=== PATIENT | male | born 1975 | race Caucasian/White ===

== ENCOUNTER 2016-08-17 02:44 | Emergency (ER) | payer OTHER ==
[~2016-08-17] VITALS: Ht 188 cm; Wt 130.2 kg
[2016-08-17 02:56] VITALS: TEMP 36.9; Ht 188 cm; Wt 130.2 kg
[2016-08-17 03:23] LABS: HEMATOCRIT 45.8 % (42-52); MEAN CELL VOLUME 82.4 fL (80-100); MEAN CORPUSCULAR HEMOGLOBIN 28.6 pg (25-34); MEAN CORPUSCULAR HGB CONC 34.7 g/dl (32-36); MEAN PLATELET VOLUME 9.1 fL (7.4-10.4); PLATELET COUNT 228 K/uL (130-400); RED BLOOD COUNT 5.56 M/uL (4.7-6.1); WHITE BLOOD COUNT 11.93 K/uL (4.8-10.8)
[2016-08-17 03:44] LABS: BUN/CREATININE RATIO 10.7 (10-20); POTASSIUM 3.4 mmol/L (3.5-5.1)
[2016-08-17 03:45] LABS: BASO % 0.2 %; BASO ABS # 0.02 K/uL (0-0.2); COMPLETE YES; EOS % 0.8 %; IG% 0.3 %; LYMPH % 14.4 %; LYMPH ABS # 1.72 K/uL (1.2-3.4); MONO % 5.2 %; NEUT % 79.1 %
[2016-08-17] MEDS ORDERED: CLONIDINE HCL 0.1 MG TAB ONE (04:14)
[2016-08-17] MEDS ORDERED: HOME MED ADMINISTRATION ONE (04:15)
[2016-08-17] MEDS ORDERED: CLONIDINE HCL 0.3 MG TAB PO ONE (04:15)
[2016-08-17 04:23] VITALS: BP 184/113; PULSE 93; O2SAT 97
[2016-08-17] MEDS ORDERED: AMLO-114 PO (04:24)
[2016-08-17] MEDS ORDERED: METO50TA16 PO (04:25)
[2016-08-17] MEDS ORDERED: GABA-112 PO (04:26)
--- NOTE | 2016-08-17 05:26 | EMERGENCY ROOM VISIT NOTE ---
History First contact with patient: 02:59 Chief Complaint: HYPERTENSION Stated Complaint: HYPERTENSION History of Present Illness The patient is a 41 year old male who presents to the Emergency Room with complaints of elevated blood pressure that started about 5 or 6 hours prior to arrival. The patient lives in [facility] and presents to the ER under police custody. Evidently the patient is undergoing legal issues and is reportedly being taken into custody for dispensing heroin. The patient has a long-standing history of hypertension. Upon intake to [employer] police, he was found to be hypertensive, and was referred to the ER for further management. The patient states that he has not taken his evening medications, and is under increased stress because of his legal situation. He does not have distinct chest pain or shortness of breath. He does follow with his primary care physician back home with his complaint. He rates his current discomfort a 7/10. No recent fevers or chills. Review of Systems More than 10 systems were reviewed and otherwise negative with the exception of history of present illness. Past Medical/Surgical History History of hypertension Family History No pertinent family history Social History Smoking Status: Current Every Day Smoker Housing Status: lives with family Current/Historical Medications Scheduled Amlodipine (Norvasc), 10 MG PO DAILY Gabapentin (Neurontin), 100 MG PO DAILY Metoprolol Tartrate (Lopressor) (Lopressor), 50 MG PO BID Allergies Coded Allergies: No Known Allergies (Unverified , 08/17/16) Physical Exam Vital Signs Date Time Temp Pulse Resp B/P Pulse Ox O2 Delivery O2 Flow Rate FiO2 08/17/16 04:23 93 20 184/113 97 08/17/16 03:35 86 20 182/122 96 Room Air 08/17/16 02:56 36.9 82 16 183/120 96 Room Air 08/17/16 02:54 Room Air Pain Rating (0-10): 0 Physical Exam VITALS: Vitals are noted on the nurse's note and reviewed by myself. Vital signs with noted hypertension GENERAL: Well-developed, well-nourished, male, who is in no acute distress and resting comfortably. Patient is cooperative with the examination. HEAD: Normocephalic atraumatic. NECK: Supple without nuchal rigidity. No lymphadenopathy. No thyromegaly. Cervical spine is nontender. HEART: Regular rate and rhythm without murmurs gallops or rubs. LUNGS: Clear to auscultation bilaterally without wheezes, rales or rhonchi. No retractions or accessory muscle use. ABDOMEN: Positive normal bowel sounds x 4. Soft, nontender, without masses or organomegaly. No guarding or rebound tenderness. MUSCULOSKELETAL: No muscle atrophy, erythema, or edema noted. Full range of motion without joint tenderness in all extremities. Medical Decision & Procedures Laboratory Results 08/17/16 03:13 Red Blood Count 5.56, Mean Corpuscular Volume 82.4, Mean Corpuscular Hemoglobin 28.6, Mean Corpuscular Hemoglobin Concent 34.7, Mean Platelet Volume 9.1, Neutrophils (%) (Auto) 79.1, Lymphocytes (%) (Auto) 14.4, Monocytes (%) (Auto) 5.2, Eosinophils (%) (Auto) 0.8, Basophils (%) (Auto) 0.2, Neutrophils # (Auto) 9.45, Lymphocytes # (Auto) 1.72, Monocytes # (Auto) 0.62, Eosinophils # (Auto) 0.09, Basophils # (Auto) 0.02 08/17/16 03:13 Test 08/17/16 03:13 08/17/16 03:18 White Blood Count 11.93 K/uL (4.8-10.8) Red Blood Count 5.56 M/uL (4.7-6.1) Hemoglobin 15.9 g/dL (14.0-18.0) Hematocrit 45.8 % (42-52) Mean Corpuscular Volume 82.4 fL (80-100) Mean Corpuscular Hemoglobin 28.6 pg (25-34) Mean Corpuscular Hemoglobin Concent 34.7 g/dl (32-36) Platelet Count 228 K/uL (130-400) Mean Platelet Volume 9.1 fL (7.4-10.4) Neutrophils (%) (Auto) 79.1 % Lymphocytes (%) (Auto) 14.4 % Monocytes (%) (Auto) 5.2 % Eosinophils (%) (Auto) 0.8 % Basophils (%) (Auto) 0.2 % Neutrophils # (Auto) 9.45 K/uL (1.4-6.5) Lymphocytes # (Auto) 1.72 K/uL (1.2-3.4) Monocytes # (Auto) 0.62 K/uL (0.11-0.59) Eosinophils # (Auto) 0.09 K/uL (0-0.5) Basophils # (Auto) 0.02 K/uL (0-0.2) RDW Standard Deviation 36.9 fL (36.4-46.3) RDW Coefficient of Variation 12.4 % (11.5-14.5) Immature Granulocyte % (Auto) 0.3 % Immature Granulocyte # (Auto) 0.03 K/uL (0.00-0.02) Red Blood Cell Morphology Unremarkable Anion Gap 9.0 mmol/L (3-11) Est Creatinine Clear Calc Drug Dose 136.6 ml/min Estimated GFR () 106.4 Estimated GFR (Non- 91.8 BUN/Creatinine Ratio 10.7 (10-20) Calcium Level 9.0 mg/dl (8.5-10.1) Total Bilirubin 0.8 mg/dl (0.2-1) Aspartate Amino Transf (AST/SGOT) 25 U/L (15-37) Alanine Aminotransferase (ALT/SGPT) 64 U/L (12-78) Alkaline Phosphatase 196 U/L (45-117) Total Protein 8.1 gm/dl (6.4-8.2) Albumin 4.0 gm/dl (3.4-5.0) Globulin 4.1 gm/dl (2.5-4.0) Albumin/Globulin Ratio 1.0 (0.9-2) Bedside Troponin I 0.000 ng/ml (0-0.045) Medications Administered Medications (Trade) Dose Ordered Sig/Guy Route Start Time Stop Time Status Last Admin Dose Admin Miscellaneous (Home Med Administration) 1 ea NOW ONCE N/A 08/17/16 04:15 08/17/16 04:16 DC 08/17/16 04:15 1 EA Clonidine HCl (Catapres Tab) 0.3 mg STK-MED ONCE .ROUTE 08/17/16 04:14 08/17/16 04:17 DC 08/17/16 04:19 0.3 MG ED Course Physical exam and history were performed. Nursing notes and EMR were reviewed. Patient appears to have elevated blood pressure with a past history of hypertension. He does not seem to have significant chest pain, headache, or other symptoms to represent endorgan damage. IV access was established and labs were obtained. EKG was normal sinus rhythm without acute ST elevation or evidence of ischemia. The patient's blood work is as above and was reviewed. He does not have a significantly elevated blood cell count, gross anemia, bandemia, or significant electrolyte imbalance. Troponin 1 is negative. I had a lengthy discussion regarding his treatment and care. He has not taken his evening medication because of his legal situation. I suspect that he is under increased stress because of this. The patient will be given his evening dose of metoprolol and clonidine. The patient overall appears stable for discharge, and will be discharged under police custody. He is to follow with his primary care physician with any ongoing or persistent symptoms. He is welcome back to the ER with any new, worsening, or concerning symptoms. The chart was completed utilizing [employer] Voice Recognition Software. Grammatical errors, random word insertions, pronoun errors, and incomplete sentences are an occasional consequence of this system due to software limitations, ambient noise, and hardware issues. Any formal questions or concerns about the content, text, or information contained within the body of this dictation should be directly addressed to the provider for clarification. . Medical Decision Differential diagnosis includes, but is not limited to: Myocardial infarction, dysrhythmia, pericarditis, pneumothorax, aortic aneurysm/dissection, DVT/PE, anxiety, GERD, PUD, electrolyte imbalance, thyroid disorder, pneumonia, bronchitis, pancreatitis, and others Impression Primary Impression: Hypertension Departure Information Dispostion Home / Self-Care Condition GOOD Forms HOME CARE DOCUMENTATION FORM, IMPORTANT VISIT INFORMATION Patient Instructions My [facility] Additional Instructions You were seen and evaluated today on an emergency basis only. This is not a substitute for, or an effort to provide, complete comprehensive medical care. It is not possible to recognize and treat all injuries or illnesses in a single emergency department visit. For this reason it is recommended that you followup with your primary care physician for ongoing care and evaluation. Continue your at-home medications as prescribed. Avoid alcohol, tobacco, nicotine, and other stimulants as this can elevate your blood pressure. You are welcome to return to the emergency department anytime with new, worsening, or concerning symptoms.
--- NOTE | 2016-08-17 07:24 | DIAGNOSTIC IMAGING REPORT ---
CHEST ONE VIEW PORTABLE CLINICAL HISTORY: Hypertension COMPARISON STUDY: No previous studies for comparison. FINDINGS: The cardiac and mediastinal contours are normal. There is no evidence of focal pulmonary consolidation. There is no evidence of failure. No pleural effusions are visualized.[ IMPRESSION: No active disease in the chest. Electronically signed by: Omar Waldrop M.D. 08/17/2016 7:23 AM Dictated Date/Time: 08/17/2016 7:23 AM
== END 2016-08-17 04:25 | disposition home or self-care (01) ==
LOC: EDBD 02:44 → C.EDB 02:51
DX: I10 Essential (primary) hypertension (principal); F17.200 Nicotine dependence, unspecified, uncomplicated